=== PATIENT | male | born 1965 | race Hispanic/Latino ===

== ENCOUNTER 2020-06-29 12:59 | Emergency (ER) | payer SELFPAY ==
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
[2020-06-29] MEDS ORDERED: Boostrix 0.5 ML (Tdap) VIAL ONE (13:51)
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
== END 2020-06-29 15:35 | disposition home or self-care (01) ==
LOC: ERS 12:59
DX: S02.831A Fracture of medial orbital wall, right side, initial encounter for closed fracture (principal); S02.31XA Fracture of orbital floor, right side, initial encounter for closed fracture; S01.511A Laceration without foreign body of lip, initial encounter; S01.411A Laceration without foreign body of right cheek and temporomandibular area, initial encounter; F17.210 Nicotine dependence, cigarettes, uncomplicated; Y04.0XXA Assault by unarmed brawl or fight, initial encounter
CPT/HCPCS: 70450; 70486; 90471; 90715